=== PATIENT | male | born 1955 | race African-American/Black ===

== ENCOUNTER 2018-12-18 09:51 | Outpatient (CLI) | payer OTHER ==
--- NOTE | 2018-12-18 11:13 | RAD ---
LEFT SHOULDER 2 VIEWS: HISTORY: Disability evaluation. FINDINGS: There are arthritic changes of the AC and glenohumeral joints with mild changes of the AC joint and m ild to moderate degenerative changes of the glenohumeral joint space. IMPRESSION: Mild arthritic changes of the left shoulder. POS: OFF
--- NOTE | 2018-12-18 11:16 | RAD ---
LUMBAR SPINE 2 VIEWS: HISTORY: Disability evaluation. FINDINGS: AP and lateral only views of the lumbar spine are performed. There is marked narrowing at L4-L5 and L5-S1 and less marked narrowing at L3-L4 with disk-osteophytosis and facet arthrosis changes, evidenc e for spondylosis. No acute fracture or malalignment. IMPRESSION: Lumbar spondylosis most marked of the lower lumbar spine. POS: [facility]
== END 2018-12-18 09:52 | disposition home or self-care (01) ==
LOC: BICRAD 09:51
PROVIDERS: ATTEND Internal Medicine
DX: Z02.71 Encounter for disability determination (principal); M47.896 Other spondylosis, lumbar region
CPT/HCPCS: 72100

== ENCOUNTER 2023-05-28 11:06 | Inpatient (IN) | payer MEDICARE ==
[~2023-05-28 11:06] MED LIST: Iopamidol-370 76% 500 ML MDV (1 ML CHARGE) ONE
[2023-05-28 12:01] LABS: #Eosinphils 0.1 thou/uL (0.0-0.7); #Monocytes 0.6 thou/uL (0.11-0.59); #Neutrophils 4.8 thou/uL (1.40-6.50); %Basophils 0.6 % (0.0-1.0); %Eosinophils 1.7 % (0.0-10.0); %Lymphocytes 22.5 % (21.0-51.0); %Monocytes 7.7 % (0.0-10.0); %Neutrophils 67.2 % (42.0-75.0); Hemoglobin 13.4 g/dL (14.0-18.0); Mean Corpuscular HGB CONC 33.8 g/dL (32.0-36.0); Mean Corpuscular Hemoglobin 33.6 pg (27.0-31.0); Mean Corpuscular Volume 99.2 fl (78.0-98.0); Mean Platelet Volume 8.9 fL (7.4-10.4); Platelet Count 275 10x3/uL (130-400); RBC Distribution Width 12.5 % (11.5-14.5); Red Blood Cell (RBC) Count 3.99 mill/uL (4.70-6.10); White Blood Cell (WBC) Count 7.2 10x3/uL (4.8-10.8)
[2023-05-28 12:06] LABS: Analyzer IN Cardio ER; Base Excess (BEa) -7.7 mEq/L (-2.0 to +3.0); CO2 Tension 28.3 mmHg (35.0-45.0); Calcium, Ionized (arterial) 1.14 mmol/L (1.12-1.30); Carboxyhemoglobin (COHb) 0.2 gm% (0.0-3.0); Hematocrit-ABG 42 % (42.0-52.0); Hemoglobin (Hb) 14.3 g/dL (14.0-18.0); O2 Tension (PaO2), arterial 91.2 mmHg (> 80.0); Potassium - ABG Lab 3.56 mmol/L (3.70-5.30)
[2023-05-28 12:09] LABS: ALV-art Gradient 73.065 mmHg (0-20); Puncture Site LRA
[2023-05-28 12:24] LABS: ALT (SGPT) 35 U/L (8-55); AST (SGOT) 54 U/L (5-34); Albumin 4.2 g/dL (3.4-4.8); Alkaline Phosphatase 51 U/L (40-110); Anion Gap 23 mmol/L (10-20); BUN (Urea Nitrogen) 5 mg/dL (8.4-25.7); CK (CPK) 61 U/L (30-200); Calc. Creatinine Clearance 0 mL/min (70-130); Calcium 9.1 mg/dL (7.8-10.44); Carbon Dioxide 17 mmol/L (23-31); Chloride 106 mmol/L (98-107); Estimated GFR 75; Globulin 3.1 g/dL (2.4-3.5); Glucose 94 mg/dL (80-115); Lipase 11 U/L (8-78); Potassium 3.6 mmol/L (3.5-5.1); Protein, Total 7.3 g/dL (5.8-8.1); Sodium 142 mmol/L (136-145)
[2023-05-28 12:29] LABS: Acetaminophen Less than 10 mcg/mL (10.0-30.0); Alcohol 25.4 mg/dL (Less than 10); Salicylate Less than 8.0 mg/dL (15.0-30.0)
[2023-05-28] MEDS ORDERED: Aspirin 300 MG Suppository ONE (12:30)
[2023-05-28 13:03] LABS: Amphetamine Not Detected (NotDetected); Barbiturates Screen Not Detected (NotDetected); Benzodiazepine Screen Not Detected (NotDetected); Cocaine Metabolite Screen Not Detected (NotDetected); Methadone Not Detected (NotDetected); Methamphetamine Not Detected (NotDetected); Opiate Screen Not Detected (NotDetected); Oxycodone Screen Not Detected (NotDetected); Phencyclidine (PCP) Not Detected (NotDetected); THC/Cannabinoid Screen Detected (NotDetected); Tricyclic Screen Not Detected (NotDetected)
[2023-05-28 13:14] LABS: Bacteria/HPF None Seen HPF (None Seen); Bilirubin Negative (Negative); Blood, Urine Negative (Negative); CAUTI Indications for Culture Alt mental st,lethar; Clarity Clear (Clear); Glucose, Urine (Dipstick) Normal (Negative); Ketone, Urine Negative (Negative); Leukocyte Negative Leu/uL (Negative); Nitrite Negative (Negative); Protein, Urine (Dipstick) 10 mg/dL (Neg-Trace); RBC/HPF 0-3 HPF (0-3); Squamous Epithelial None Seen HPF (0-3); Urobilinogen Normal mg/dL (Less than 2); WBC/HPF 0-3 HPF (0-3)
[2023-05-28 13:17] LABS: Urine Culture Reflex No No
[2023-05-28] MEDS ORDERED: hydrALAZINE 20 MG/ML VIAL SLOW IVP PRN (14:03)
[2023-05-28] MEDS ORDERED: Ondansetron ODT 4 MG TAB PO PRN (14:13)
[2023-05-28] MEDS ORDERED: Senokot S 8.6-50 MG TAB PO PRN (14:13)
[2023-05-28] MEDS ORDERED: Ondansetron PF 4 MG/2 ML Vial IVP PRN (14:13)
[2023-05-28] MEDS ORDERED: Acetaminophen 325 MG TAB PO PRN (14:13)
[2023-05-28] MEDS ORDERED: Lorazepam 2 MG/ML VIAL IM PRN (14:14)
[2023-05-28] MEDS ORDERED: Lorazepam 1 MG TAB PO PRN (14:14)
[2023-05-28] MEDS ORDERED: Electrolyte Replacement Protocol 1 EACH FS SCH (14:15)
[2023-05-28] MEDS ORDERED: Multivit, Therapeutic 1 TAB PO SCH (14:30)
[2023-05-28] MEDS ORDERED: Sodium Chloride 0.9% 1,000 ML IV SCH (14:30)
[2023-05-28] MEDS ORDERED: Folic Acid 1 MG TAB PO SCH (14:30)
[2023-05-28 14:43] LABS: #Monocytes 0.6 thou/uL (0.11-0.59); %Basophils 0.4 % (0.0-1.0); %Eosinophils 0.2 % (0.0-10.0); %Lymphocytes 7.5 % (21.0-51.0); %Monocytes 6.3 % (0.0-10.0); %Neutrophils 85.4 % (42.0-75.0); Hemoglobin 13.9 g/dL (14.0-18.0); Mean Corpuscular HGB CONC 33.8 g/dL (32.0-36.0); Mean Corpuscular Hemoglobin 34.1 pg (27.0-31.0); Mean Corpuscular Volume 100.7 fl (78.0-98.0); Mean Platelet Volume 8.7 fL (7.4-10.4); Platelet Count 252 10x3/uL (130-400); RBC Distribution Width 12.6 % (11.5-14.5); Red Blood Cell (RBC) Count 4.08 mill/uL (4.70-6.10); White Blood Cell (WBC) Count 9.4 10x3/uL (4.8-10.8)
[2023-05-28 15:11] LABS: Lactic Acid 3.5 mmol/L (0.5-2.2)
[2023-05-28 15:18] LABS: Bilirubin, Direct 0.5 mg/dL (0.1-0.3); Magnesium 1.7 mg/dL (1.6-2.6); Phosphorus 2.7 mg/dL (2.3-4.7)
[2023-05-28 15:36] LABS: Troponin I 0.066 ng/mL (< 0.028)
[2023-05-28 15:40] VITALS: BMI 22.4
[2023-05-28 20:04] LABS: Syphilis Antibody Index 9.33 S/CO (<1.00 Non-Reactive)
[2023-05-28 20:12] LABS: Troponin I 0.103 ng/mL (< 0.028)
[2023-05-28 21:33] LABS: Syphilis Antibody INDETERMINATE (Nonreactive)
[2023-05-28] MEDS: Atorvastatin Calcium 40 MG TAB PO SCH (21:56)
[2023-05-28] MEDS: Famotidine 20 MG TAB PO SCH (21:56)
[2023-05-29 06:02] LABS: ALT (SGPT) 30 U/L (8-55); AST (SGOT) 36 U/L (5-34); Albumin 3.8 g/dL (3.4-4.8); Alkaline Phosphatase 48 U/L (40-110); Anion Gap 14 mmol/L (10-20); BUN (Urea Nitrogen) 6 mg/dL (8.4-25.7); Bilirubin, Total 1.5 mg/dL (0.2-1.2); Calc. Creatinine Clearance 83 mL/min (70-130); Calcium 8.7 mg/dL (7.8-10.44); Carbon Dioxide 24 mmol/L (23-31); Cardiac Risk 3.4 (Less than 4.5); Chloride 102 mmol/L (98-107); Cholesterol 165 mg/dl (< 200 Desired); Estimated GFR 94; Globulin 2.9 g/dL (2.4-3.5); Glucose 85 mg/dL (80-115); HDL Cholesterol 49 mg/dL (>60 Neg Risk); LDL Cholesterol, Calculated 104 mg/dL; Potassium 3.3 mmol/L (3.5-5.1); Protein, Total 6.7 g/dL (5.8-8.1); Sodium 137 mmol/L (136-145); Triglycerides 62 mg/dL (Less than 150)
[2023-05-29] MEDS ORDERED: Potassium Chloride 20 MEQ TAB PO SCH (08:00)
[2023-05-29] MEDS ORDERED: Magnesium 2 GM/50 ML(in water) 2 GM in Premix Bag 1 BAG IVPB SCH (08:00)
[2023-05-29] MEDS: Famotidine 20 MG TAB PO SCH ×2 (08:57→20:05)
[2023-05-29] MEDS: Thiamine HCl 200 MG/2 ML VIAL SLOW IVP SCH (08:57)
[2023-05-29] MEDS: Aspirin 81 mg Enteric Coated Tablet PO SCH (08:57)
[2023-05-29] MEDS: Folic Acid 1 MG TAB PO SCH (08:57)
[2023-05-29] MEDS: Cyanocobalamin (Vitamin B-12) 1,000 MCG TAB PO SCH (08:57)
[2023-05-29] MEDS: Multivit, Therapeutic 1 TAB PO SCH (08:58)
[2023-05-29] MEDS ORDERED: Lorazepam 1 MG TAB PO PRN (14:15)
[2023-05-29] MEDS: Sodium Chloride 0.9% 1,000 ML IV SCH (18:16)
[2023-05-29] MEDS: Atorvastatin Calcium 40 MG TAB PO SCH (20:05)
[2023-05-29] MEDS: Heparin 5,000 UNITS/ML VIAL SC SCH (20:05)
[2023-05-30 05:38] LABS: #Eosinphils 0.1 thou/uL (0.0-0.7); #Monocytes 0.8 thou/uL (0.11-0.59); #Neutrophils 4.9 thou/uL (1.40-6.50); %Basophils 0.6 % (0.0-1.0); %Eosinophils 1.4 % (0.0-10.0); %Lymphocytes 19.2 % (21.0-51.0); %Monocytes 10.6 % (0.0-10.0); %Neutrophils 67.9 % (42.0-75.0); Hemoglobin 14.5 g/dL (14.0-18.0); Mean Corpuscular HGB CONC 34.4 g/dL (32.0-36.0); Mean Corpuscular Hemoglobin 32.9 pg (27.0-31.0); Mean Corpuscular Volume 95.5 fl (78.0-98.0); Mean Platelet Volume 8.9 fL (7.4-10.4); Platelet Count 336 10x3/uL (130-400); RBC Distribution Width 11.9 % (11.5-14.5); Red Blood Cell (RBC) Count 4.41 mill/uL (4.70-6.10); White Blood Cell (WBC) Count 7.2 10x3/uL (4.8-10.8)
[2023-05-30 06:09] LABS: Anion Gap 17 mmol/L (10-20); BUN (Urea Nitrogen) 6 mg/dL (8.4-25.7); Calc. Creatinine Clearance 86 mL/min (70-130); Calcium 9.5 mg/dL (7.8-10.44); Carbon Dioxide 22 mmol/L (23-31); Chloride 102 mmol/L (98-107); Estimated GFR 95; Glucose 96 mg/dL (80-115); Magnesium 1.8 mg/dL (1.6-2.6); Phosphorus 2.9 mg/dL (2.3-4.7); Potassium 3.5 mmol/L (3.5-5.1); Sodium 137 mmol/L (136-145)
[2023-05-30] MEDS ORDERED: Potassium Chloride 20 MEQ TAB PO SCH (08:00)
[2023-05-30] MEDS ORDERED: Magnesium 2 GM/50 ML(in water) 2 GM in Premix Bag 1 BAG IVPB SCH (08:00)
[2023-05-30] MEDS: Cyanocobalamin (Vitamin B-12) 1,000 MCG TAB PO SCH (08:33)
[2023-05-30] MEDS: Thiamine HCl 200 MG/2 ML VIAL SLOW IVP SCH (08:33)
[2023-05-30] MEDS: Aspirin 81 mg Enteric Coated Tablet PO SCH (08:33)
[2023-05-30] MEDS: Famotidine 20 MG TAB PO SCH ×2 (08:33→20:46)
[2023-05-30] MEDS: Folic Acid 1 MG TAB PO SCH (08:34)
[2023-05-30] MEDS: Heparin 5,000 UNITS/ML VIAL SC SCH ×2 (08:34→20:46)
[2023-05-30] MEDS: Multivit, Therapeutic 1 TAB PO SCH (08:34)
[2023-05-30] MEDS ORDERED: Lorazepam 1 MG TAB PO PRN (14:15)
[2023-05-30] MEDS: Sodium Chloride 0.9% 1,000 ML IV SCH (14:17)
[2023-05-30] MEDS: Atorvastatin Calcium 40 MG TAB PO SCH (20:46)
[2023-05-31 06:03] LABS: Anion Gap 12 mmol/L (10-20); BUN (Urea Nitrogen) 7 mg/dL (8.4-25.7); Calc. Creatinine Clearance 89 mL/min (70-130); Calcium 9.2 mg/dL (7.8-10.44); Carbon Dioxide 25 mmol/L (23-31); Chloride 103 mmol/L (98-107); Estimated GFR 96; Glucose 89 mg/dL (80-115); Phosphorus 3.6 mg/dL (2.3-4.7); Sodium 136 mmol/L (136-145)
[2023-05-31] MEDS ORDERED: Magnesium 2 GM/50 ML(in water) 2 GM in Premix Bag 1 BAG IVPB SCH (08:00)
[2023-05-31] MEDS: Folic Acid 1 MG TAB PO SCH (08:58)
[2023-05-31] MEDS: Multivit, Therapeutic 1 TAB PO SCH (08:58)
[2023-05-31] MEDS: Famotidine 20 MG TAB PO SCH ×2 (08:58→21:21)
[2023-05-31] MEDS: Aspirin 81 mg Enteric Coated Tablet PO SCH (08:58)
[2023-05-31] MEDS: Cyanocobalamin (Vitamin B-12) 1,000 MCG TAB PO SCH (08:58)
[2023-05-31] MEDS: Thiamine 100 MG TAB PO SCH (08:58)
[2023-05-31] MEDS: Heparin 5,000 UNITS/ML VIAL SC SCH ×2 (08:59→21:21)
[2023-05-31] MEDS ORDERED: Lorazepam 0.5 MG TAB PO PRN (14:15)
[2023-05-31] MEDS: Atorvastatin Calcium 40 MG TAB PO SCH (21:21)
[2023-06-01 05:05] LABS: #Eosinphils 0.3 thou/uL (0.0-0.7); #Monocytes 0.8 thou/uL (0.11-0.59); #Neutrophils 4.6 thou/uL (1.40-6.50); %Basophils 0.5 % (0.0-1.0); %Monocytes 10.6 % (0.0-10.0); %Neutrophils 61.6 % (42.0-75.0); Hemoglobin 13.7 g/dL (14.0-18.0); Mean Corpuscular HGB CONC 34.3 g/dL (32.0-36.0); Mean Corpuscular Hemoglobin 33.7 pg (27.0-31.0); Mean Platelet Volume 8.7 fL (7.4-10.4); Platelet Count 360 10x3/uL (130-400); RBC Distribution Width 12.2 % (11.5-14.5); Red Blood Cell (RBC) Count 4.07 mill/uL (4.70-6.10); White Blood Cell (WBC) Count 7.5 10x3/uL (4.8-10.8)
[2023-06-01 05:31] LABS: Anion Gap 13 mmol/L (10-20); BUN (Urea Nitrogen) 8 mg/dL (8.4-25.7); Calc. Creatinine Clearance 82 mL/min (70-130); Calcium 9.3 mg/dL (7.8-10.44); Carbon Dioxide 23 mmol/L (23-31); Chloride 105 mmol/L (98-107); Estimated GFR 92; Glucose 93 mg/dL (80-115); Phosphorus 3.7 mg/dL (2.3-4.7); Sodium 137 mmol/L (136-145)
[2023-06-01] MEDS ORDERED: Magnesium 2 GM/50 ML(in water) 2 GM in Premix Bag 1 BAG IVPB SCH (08:00)
[2023-06-01] MEDS ORDERED: Ergocalciferol 1.25 MG(50,000 UNITS) CAP PO SCH (09:00)
[2023-06-01] MEDS: Famotidine 20 MG TAB PO SCH (12:34)
[2023-06-01] MEDS: Thiamine 100 MG TAB PO SCH (12:34)
[2023-06-01] MEDS: Aspirin 81 mg Enteric Coated Tablet PO SCH (12:35)
[2023-06-01] MEDS: Folic Acid 1 MG TAB PO SCH (12:35)
[2023-06-01] MEDS: Heparin 5,000 UNITS/ML VIAL SC SCH (12:35)
[2023-06-01] MEDS: Multivit, Therapeutic 1 TAB PO SCH (12:35)
[2023-06-01] MEDS: Cyanocobalamin (Vitamin B-12) 1,000 MCG TAB PO SCH (12:35)
[2023-06-01 16:02] VITALS: BP 117/80; TEMP 97.4
== END 2023-06-01 19:15 | disposition home health service (06) | DRG 64 ==
LOC: ERS 11:06 → ERHOLD 14:11 → 2SE 19:31
PROVIDERS: ADMIT Student in an Organized Health Care Education/Training Program; ATTEND Internal Medicine
PROC: 4A033R1 Measurement of Arterial Saturation, Peripheral, Percutaneous Approach (ICD-10-PCS; principal; 2023-05-28)
DX: I63.512 Cerebral infarction due to unspecified occlusion or stenosis of left middle cerebral artery (principal); G93.41 Metabolic encephalopathy; I21.A1 Myocardial infarction type 2; E87.20 Acidosis, unspecified; I63.81 Other cerebral infarction due to occlusion or stenosis of small artery; E86.0 Dehydration; R74.02 Elevation of levels of lactic acid dehydrogenase [LDH]; R29.714 NIHSS score 14; R47.01 Aphasia; F10.229 Alcohol dependence with intoxication, unspecified; E83.42 Hypomagnesemia; E87.6 Hypokalemia; F12.10 Cannabis abuse, uncomplicated; Z71.51 Drug abuse counseling and surveillance of drug abuser; Z79.82 Long term (current) use of aspirin; Z79.899 Other long term (current) drug therapy; I08.1 Rheumatic disorders of both mitral and tricuspid valves
CPT/HCPCS: 36415; 36416; 36600; 51701; 70450; 70496; 70498; 70551; 71045; 80048; 80053; 80061; 80306; 80307; 81001; 82010; 82140; 82248; 82550; 82553; 82805; 83605; 83690; 83735; 83880; 84100; 84443; 84484; 85025; 86593; 86780; 87040; 93005; 93306; 96361; 96365; J1644; J3411; J3475; J7050; Q9967